=== PATIENT | female | born 1950 | race Caucasian/White ===

== ENCOUNTER 2021-11-09 18:27 | Emergency (ER) | payer MEDICARE, OTHER, SELFPAY ==
--- NOTE | ~2021-11-09 | XR_ITS ---
EXAMINATION: XR chest 1V portable INDICATION: Bilateral lower limb weakness, COVID 19 exposure TECHNIQUE: Portable AP chest at 1845 hours COMPARISON: None available FINDINGS: The lungs are free of acute opacities. There is no pleural effusion or pneumothorax. The he art size is normal. There is a moderate-sized hiatal hernia. IMPRESSION: 1. No acute cardiopulmonary abnormality. 2. Moderate-sized hiatal hernia. Reviewed, dictated and finalized at location F.
[2021-11-09 18:27] VITALS: BP 131/86; PULSE 123; RESP 19; TEMP 37.7; O2SAT 96
[2021-11-09 18:36] VITALS: PULSE 122
--- NOTE | 2021-11-09 18:37 | ECG_ITS ---
Measurements Intervals [place] Rate: 110 P: 51 HI: 179 QRS: -15 QRSD: 150 T: 133 QT: 346 QTc: 469 Interpretive Statements SINUS TACHYCARDIA LEFT BUNDLE BRANCH BLOCK [120+ ms QRS DURATION, 80+ ms Q/S IN V1/V2, 85+ ms R IN I/aVL/V5/V6] NO PREVIOUS ECG AVAILABLE FOR COMPARISON Electronically Signed On 11-10-2021 16:39:08 CDT by Dea Francois M.D.
[2021-11-09 19:07] LABS: Hematocrit 46.4 % (37.0-47.0); Hemoglobin 14.7 g/dL (12.0-15.0); Immature Platelet Fraction Pct 3.8 % (0.9-11.2); Mean Corpuscular HGB Conc 31.7 g/dl (32-36); Mean Corpuscular Hemoglobin 29.4 pg (26-34); Mean Corpuscular Volume 92.8 fl (80-100); Mean Platelet Volume 9.8 fl (7.4-10.4); Platelet Count Result 231 k/mm3 (150-375); Red Cell Distribution Width 12.6 % (11.5-14.5)
[2021-11-09] MEDS: SODIUM CHLORIDE 0.9% IV 1,000 ML 999 ML IV CONT ×2 (19:11→21:28)
[2021-11-09] MEDS: ACETAMINOPHEN 325 MG TABLET 650 MG PO (19:11)
[2021-11-09 19:17] LABS: Alanine Aminotransferase 31 U/L (6-35); Albumin Level 4.7 g/dL (3.5-5.1); Alkaline Phosphatase 74 U/L (38-126); Anion Gap 11 mmol/L (8-16); Aspartate Amino Transferase 42 U/L (14-36); Bilirubin,Total 0.6 mg/dL (0.2-1.3); Blood Urea Nitrogen 20 mg/dL (7-17); Calcium 9.4 mg/dL (8.4-10.2); Carbon Dioxide 24 mmol/L (22-30); Chloride 107 mmol/L (98-107); Estimated CRCL calculation 32 ml/min; Estimated Glomerular Filt Rate 40; Glucose 134 mg/dL (65-110); Potassium 4.1 mmol/L (3.4-5.0); Sodium 142 mmol/L (137-145)
[2021-11-09 19:26] LABS: Band Neutrophils Percent 6 % (0-6); Lymphocytes Absolute Manual 0.28 K/mm3 (1.1-4.5); Monocytes Absolute Manual 0.77 K/mm3 (0.1-0.90); Monocytes Percent Manual 11 % (3-9); Neutrophils Absolute Manual 5.95 K/mm3 (1.7-7.2); Neutrophils Percent Manual 79 % (46-73); Total Cells Counted 100
[2021-11-09 19:27] LABS: Hypochromasia 1+ (NORMAL); Platelet Estimate Adequate (Adequate)
--- NOTE | 2021-11-09 19:40 | ED.WEAKNESS ---
HPI - Weakness General Chief complaint: Weakness Stated complaint: leg weakness, family covid + Time Seen by Provider: 11/09/21 18:42 History of Present Illness HPI Narrative: Patient is a 71-year-old female with history of CVA who presents ER with bilateral lower extremity weakness. Reports over the last 2 hours she has developed weakness in her lower extremities and can no longer walk. She did not fall or strike her head. She reports that all of the members of her family who reside in her home are positive for COVID in the last week. She has not been tested. She denies fevers or chills or sweats. No runny nose or sore throat or productive cough. No slurred speech or weakness in her arms. No facial droop. Related Data Allergies Allergy/AdvReac Type Severity Reaction Status Date / Time No Known Allergies Allergy Verified 11/09/21 18:37 Review of Systems Review of Systems: All systems reviewed & are unremarkable except as noted in HPI and below Constitutional: Constitutional: Denies chills, Reports fatigue, Denies fever(s) and Reports weakness ENT: Denies nasal congestion and Denies sore throat Cardiovascular: Cardiovascular: Denies chest pain, Denies rapid heart rate and Denies radiating jaw, neck or arm pain Respiratory: Respiratory: Denies cough and Denies dyspnea Gastrointestinal: Gastrointestinal: Denies abdominal pain, Denies nausea and Denies vomiting Genitourinary: Genitourinary: Denies nocturia and Denies dysuria Neurologic: Denies headache(s), Denies focal weakness, Denies numbness and Reports weakness PMFSH Past Medical History Medical History (Updated 11/09/21 @ 22:02 by Evan Nair MD) CVA (cerebral vascular accident) Depression GERD (gastroesophageal reflux disease) Hyperlipidemia Hypertension Surgical History Surgical History (Updated 11/09/21 @ 21:57 by Evan Nair MD) History of cholecystectomy Social History Social History (Updated 11/09/21 @ 21:57 by Evan Nair MD) Social History: History of tobacco abuse Exam Narrative: GENERAL: Well-appearing, well-nourished, and in no acute distress. HEAD: Normocephalic, atraumatic. EYES: PERRL and EOMI. ENT: Mucous membranes moist. CHEST: Clear to auscultation. No respiratory distress. HEART: Regular rate and rhythm. Normal peripheral pulses. ABDOMEN: Soft, nontender, nondistended. EXTREMITIES: Normal range of motion. No edema. SKIN: Warm, dry, no rash. NEURO: Alert and oriented x3. Course Course Emergency Course: Patient received 2 L IV fluid. She has been able to ambulate to the bathroom without issue. Discharge home. Will give prescription for Paxil bed, patient does not know what medication she takes. Discussed she needs to speak with pharmacist about whether the medication interacts with any of her other meds. Vital Signs Vital signs: Vital Signs Temperature 99.8 F H 11/09/21 18:27 Pulse Rate 123 H 11/09/21 18:27 Respiratory Rate 19 11/09/21 18:27 Blood Pressure 131/86 11/09/21 18:27 Pulse Oximetry 96 11/09/21 18:27 Oxygen Delivery Room Air 11/09/21 18:27 Temperature 99.8 F H 11/09/21 18:27 Pulse Rate 122 H 11/09/21 18:36 Respiratory Rate 19 11/09/21 18:27 Blood Pressure 131/86 11/09/21 18:27 Pulse Oximetry 96 11/09/21 18:27 Oxygen Delivery Room Air 11/09/21 18:27 MDM - Weakness Lab Data Result diagrams: 11/09/21 19:00 11/09/21 19:00 Labs: Lab Results 11/09/21 11/09/21 11/09/21 Range/Units 19:00 19:00 19:05 WBC 7.0 (4.5-10.0) K/mm3 RBC 5.00 (4.2-5.4) M/mm3 Hgb 14.7 (12.0-15.0) g/dL Hct 46.4 (37.0-47.0) % MCV 92.8 (80-100) fl MCH 29.4 (26-34) pg MCHC 31.7 L (32-36) g/dl RDW 12.6 (11.5-14.5) % Plt Count 231 (150-375) k/mm3 MPV 9.8 (7.4-10.4) fl Immature Gran % (Auto) Not Reportable Neut % (Auto) Not Reportable Lymph % (Auto) Not Reportable M
[2021-11-09 19:53] LABS: SARS-CoV-2 RNA PCR Positive
[2021-11-09 22:11] LABS: Add Urine Microscopic? YES; Appearance Urine Clear (Clear); Bilirubin Urine 1+ (Negative); Blood Urine 3+ (Negative); Color Urine Yellow (Yellow); Glucose Urine UA Negative (Negative); Ketones Urine Negative (Negative); Leukocyte Esterase Ur Trace LEU/UL (Negative); Nitrate Urine Negative (Negative); Protein Urine Negative (Negative); Specific Grav Ur 1.025 (1.001-1.035); pH Urine 5.5 (5.0-9.0)
[2021-11-09 22:15] LABS: Bacteria Urine Trace /hpf; Mucus Urine Rare /lpf; Squamous Epithelial Cell Urine Occasional /hpf (Few)
[2021-11-09 22:42] VITALS: BP 118/73; PULSE 76; RESP 18; TEMP 36.9; O2SAT 98
== END 2021-11-09 22:43 | disposition home or self-care (01) ==
PROVIDERS: Emergency Provider Emergency Medicine
DX: U07.1 COVID-19 (principal); E86.0 Dehydration; E78.5 Hyperlipidemia, unspecified; I10 Essential (primary) hypertension; K21.9 Gastro-esophageal reflux disease without esophagitis; Z86.73 Personal history of transient ischemic attack (TIA), and cerebral infarction without residual deficits; R00.0 Tachycardia, unspecified; I44.7 Left bundle-branch block, unspecified
CPT/HCPCS: 36415; 71045; 80053; 81001; 85025; 85055; 93005; 96360; 96361; 99283; A9270; C9803; J7030; U0003; U0005